=== PATIENT | female | born 1990 | race Two or more races ===

== ENCOUNTER 2018-03-29 21:39 | Emergency (ER) | payer MEDICAID ==
[~2018-03-29] VITALS: Ht 160 cm; Wt 74.8 kg
--- NOTE | 2018-03-29 21:54 | NUR ---
PT PRESENTED TO THE ER WITH A C/O VAGINAL BLEEDING SINCE 1499 TODAY. PT STATED THAT THE PAIN HAS INCREASED SINCE THAT TIME. PT HAD VAGINAL BLEEDING - PINK. NOW PT STATED THAT THE BLEEDING IS BRIGHT RED.
--- NOTE | 2018-03-29 22:12 | NUR ---
US IS AT THE BEDSIDE.
[2018-03-29 22:15] LABS: BASOPHILS # (AUTO) 0.1 /CMM (0.0-0.2); BASOPHILS % (AUTO) 0.6 % (0.0-2.0); EOSINOPHILS % (AUTO) 3.2 % (0.0-6.0); HEMATOCRIT 37 % (33-45); HEMOGLOBIN 12.6 g/dL (11.5-14.8); LYMPHOCYTES # (AUTO) 2.1 /CMM (0.8-4.8); LYMPHOCYTES % (AUTO) 23.1 % (20.0-44.0); MEAN CORPUSCULAR HGB CONC 34 g/dl (31.0-36.0); MEAN CORPUSCULAR VOLUME 91 fL (82-100); MONOCYTES # (AUTO) 0.6 /CMM (0.1-1.30); MONOCYTES % (AUTO) 6.5 % (2.0-12.0); NEUTROPHILS # (AUTO) 6.1 /CMM (1.8-8.9); NEUTROPHILS % (AUTO) 66.6 % (43.0-81.0); PLATELET COUNT (AUTO) 157 /CMM (150-450); RED BLOOD CELL COUNT(AUTO) 4.14 MIL/uL (4.0-5.2); WHITE BLOOD COUNT (AUTO) 9.2 K/uL (4.3-11.0)
[2018-03-29 22:27] LABS: CALCIUM, SERUM 8.7 mg/dL (8.5-10.1); CREATININE 0.6 mg/dL (0.6-1.3); POTASSIUM 3.9 mmol/L (3.5-5.1)
--- NOTE | 2018-03-29 22:42 | NUR ---
pt is not a rho-isela candidate
[2018-03-29 22:49] LABS: APPEARANCE,URINE SL CLOUDY (CLEAR); BILIRUBIN,URINE NEGATIVE (NEGATIVE); BLOOD, URINE 3+ Ery/uL (NEGATIVE); KETONES,URINE NEGATIVE (NEGATIVE); LEUKOCYTE ESTERASE ,URINE TRACE (NEGATIVE); NITRITE, URINE NEGATIVE (NEGATIVE); PH,URINE 6.5 (5.0-8.0); PROTEIN,URINE NEGATIVE (NEGATIVE); UGLUCOSE NEGATIVE (NEGATIVE); UROBILINOGEN,URINE 0.2 EU/dL (0.2)
[2018-03-29 22:57] LABS: COLOR,URINE DARK YELLOW (YELLOW)
[2018-03-29 22:58] LABS: BACTERIA,URINE None seen /HPF (None Seen); RBC,URINE 81-100 /HPF (0-2); SQUAMOUS EPITHELIAL CELL,UR Few /HPF (None Seen)
[2018-03-29 23:12] VITALS: BP 128/77
== END 2018-03-29 23:13 | disposition home or self-care (01) ==
LOC: ER 21:45
DX: O20.0 Threatened abortion (principal); F41.9 Anxiety disorder, unspecified; Z60.2 Problems related to living alone
CPT/HCPCS: 36415; 76856-TC; 80048-TC; 81000-TC; 84702-TC; 85025-TC; 85730-TC

== ENCOUNTER 2020-08-08 06:01 | Emergency (ER) | payer MEDICAID ==
[~2020-08-08] VITALS: Ht 162.6 cm; Wt 77.1 kg
--- NOTE | 2020-08-08 06:20 | NUR ---
PRESENTED TO THE ER FOR C/O VAGINAL BLEEDING SINCE 399. + L SIDED LOWER BADOMINAL CRAMP AND LOWER BACK PAIN. PT 13 WEEK W/ LMP: 05/12/20. [id number].
--- NOTE | 2020-08-08 06:29 | NUR ---
DR STANLEY AT BED SIDE
[2020-08-08] MEDS ORDERED: ACETAMINOPHEN 325 MG TABLET ONE (06:56)
[2020-08-08] MEDS ORDERED: ACETAMINOPHEN 325 MG TABLET PO ONE (07:00)
[2020-08-08 07:01] LABS: BASOPHILS % (AUTO) 0.4 % (0.0-2.0); EOSINOPHILS % (AUTO) 3.1 % (0.0-6.0); HEMATOCRIT 37 % (33-45); HEMOGLOBIN 12.4 g/dL (11.5-14.8); LYMPHOCYTES # (AUTO) 1.8 /CMM (0.8-4.8); LYMPHOCYTES % (AUTO) 19.4 % (20.0-44.0); MEAN CORPUSCULAR HGB CONC 33 g/dl (31.0-36.0); MEAN CORPUSCULAR VOLUME 91 fL (82-100); MONOCYTES # (AUTO) 0.5 /CMM (0.1-1.30); MONOCYTES % (AUTO) 5.3 % (2.0-12.0); NEUTROPHILS # (AUTO) 6.7 /CMM (1.8-8.9); NEUTROPHILS % (AUTO) 71.8 % (43.0-81.0); PLATELET COUNT (AUTO) 151 /CMM (150-450); WHITE BLOOD COUNT (AUTO) 9.3 K/uL (4.3-11.0)
--- NOTE | 2020-08-08 07:14 | NUR ---
us tech at bed side
[2020-08-08 07:24] LABS: CALCIUM, SERUM 8.3 mg/dL (8.5-10.1); CREATININE 0.5 mg/dL (0.6-1.3); POTASSIUM 3.8 mmol/L (3.5-5.1)
[2020-08-08 08:00] VITALS: BP 131/54
--- NOTE | 2020-08-08 08:00 | NUR ---
Patient discharged to home in stable condition. Written and verbal after care instructions given. Patient verbalizes understanding of instruction.
== END 2020-08-08 08:00 | disposition home or self-care (01) ==
LOC: ER 06:03
DX: O20.0 Threatened abortion (principal); Z3A.13 13 weeks gestation of pregnancy
CPT/HCPCS: 36415; 76805-TC; 80048-TC; 84702-TC; 85025-TC; 85730-TC

== ENCOUNTER 2022-05-10 12:19 | Emergency (ER) | payer MEDICAID ==
[~2022-05-10] VITALS: Ht 160 cm; Wt 68.9 kg
[2022-05-10] MEDS ORDERED: DEXAMETHASONE SOD PHOSPHATE 10 MG/ML VIAL ONE (12:48)
[2022-05-10] MEDS ORDERED: FAMOTIDINE/PF INJ 20 MG/2 ML VIAL IV ONE ×2 (12:48→13:00)
[2022-05-10] MEDS ORDERED: KETOROLAC TROMETHAMINE 15 MG/ML VIAL ONE (12:48)
--- NOTE | 2022-05-10 12:50 | NUR ---
established iv line at right ac 18 g , blood sample obtained
--- NOTE | 2022-05-10 12:57 | NUR ---
WARM BLANKET PROVIDED TO PT
[2022-05-10] MEDS ORDERED: DEXAMETHASONE SOD PHOSPHATE 10 MG/ML VIAL IV ONE (13:00)
[2022-05-10] MEDS ORDERED: KETOROLAC TROMETHAMINE INJ 30 MG/ML VIAL IV ONE (13:00)
--- NOTE | 2022-05-10 13:06 | NUR ---
patient stated that she is on her period, waiver signed by patient
[2022-05-10 13:07] LABS: BASOPHILS % (AUTO) 0.4 % (0.0-2.0); EOSINOPHILS % (AUTO) 1.5 % (0.0-6.0); HEMATOCRIT 36 % (33-45); HEMOGLOBIN 11.7 g/dL (11.5-14.8); LYMPHOCYTES # (AUTO) 1.3 K/uL (0.8-4.8); MEAN CORPUSCULAR HGB CONC 33 g/dl (31.0-36.0); MEAN CORPUSCULAR VOLUME 80 fL (82-100); MONOCYTES # (AUTO) 0.6 K/uL (0.1-1.30); MONOCYTES % (AUTO) 8.1 % (2.0-12.0); NEUTROPHILS # (AUTO) 5.4 K/uL (1.8-8.9); PLATELET COUNT (AUTO) 161 K/uL (150-450); RED BLOOD CELL COUNT(AUTO) 4.48 MIL/uL (4.0-5.2); WHITE BLOOD COUNT (AUTO) 7.4 K/uL (4.3-11.0)
--- NOTE | 2022-05-10 13:20 | NUR ---
rapid flu , covid swab taken
[2022-05-10] MEDS ORDERED: CT SWABBABLE VALVE TRANS SET 1 EA INFUS.SET MC ONE (13:29)
[2022-05-10] MEDS ORDERED: IV NS 0.9% 250 ML IV ONE (13:29)
[2022-05-10] MEDS ORDERED: IOHEXOL-300 100 ML VIAL IV ONE (13:29)
[2022-05-10 13:35] LABS: THYROID STIMULATING HORMONE < 0.007 uIU/mL (0.358-3.74)
[2022-05-10 13:41] LABS: CALCIUM, SERUM 8.7 mg/dL (8.5-10.1); CARBON DIOXIDE 24 mmol/L (21-32); CHLORIDE 106 mmol/L (98-107); CREATININE 0.4 mg/dL (0.6-1.3); GLUCOSE 101 mg/dL (74-106); POTASSIUM 3.9 mmol/L (3.5-5.1); SODIUM SERUM 139 mmol/L (136-145); UREA NITROGEN, BLOOD 11 mg/dL (7-18)
[2022-05-10] MEDS ORDERED: DIPH25CA83 PO ×2 (14:22→15:56)
[2022-05-10] MEDS ORDERED: PRED20TA PO ×2 (14:22→15:56)
[2022-05-10] MEDS ORDERED: IBUP-1955 PO ×2 (14:22→15:56)
[2022-05-10] MEDS ORDERED: AMOX-430 PO ×2 (15:43→15:56)
--- NOTE | 2022-05-10 15:51 | NUR ---
rapid strep swab obtained and sent to lab
[2022-05-10 16:15] VITALS: BP 141/66
--- NOTE | 2022-05-10 16:15 | NUR ---
IV removed. Catheter intact and site benign. Pressure and 4x4 applied to site. No bleeding noted.
--- NOTE | 2022-05-10 16:15 | NUR ---
Patient discharged to home in stable condition. Written and verbal after care instructions given. Patient verbalizes understanding of instruction.
== END 2022-05-10 16:17 | disposition home or self-care (01) ==
LOC: ER 12:22
DX: B34.9 Viral infection, unspecified (principal); J32.9 Chronic sinusitis, unspecified; Z20.822 Contact with and (suspected) exposure to COVID-19; J02.9 Acute pharyngitis, unspecified; R03.0 Elevated blood-pressure reading, without diagnosis of hypertension
CPT/HCPCS: 99285; 96374; 70491; 96375; 87426; 87804 ×2; 85025; 80048; 36415; 87880; 84443; J1100; J3490; J7030; J7050; Q9967; J1885; C9803; 86403-TC